=== PATIENT | male | born 1965 | race Caucasian/White ===

== ENCOUNTER 2017-10-27 17:27 | Emergency (ER) | payer MEDICAID, OTHER ==
[~2017-10-27] VITALS: Ht 182.9 cm; Wt 100.9 kg
--- NOTE | 2017-10-27 17:49 | NUR ---
BIB SON C/O DYSURIA SINCE YESTERDAY. AAOX3. VSS. PT SEEN & EVAL'D BY DR. CERVANTES. URINE COLLECTED & SENT TO LAB. PT STABLE, NAD NOTED @ THIS TIME.
[2017-10-27] MEDS ORDERED: KETOROLAC TROMETHAMINE INJ 30 MG/ML VIAL IV ONE (18:00)
[2017-10-27] MEDS ORDERED: IV NS 0.9% 1,000 ML BAG IV ONE (18:00)
[2017-10-27 18:01] LABS: BASOPHILS # (AUTO) 0.3 /CMM (0.0-0.2); BASOPHILS % (AUTO) 1.3 % (0.0-2.0); EOSINOPHILS % (AUTO) 0.1 % (0.0-6.0); HEMATOCRIT 47 % (39-51); LYMPHOCYTES # (AUTO) 1.4 /CMM (0.8-4.8); MEAN CORPUSCULAR HEMOGLOBIN 32 PG (26.0-33.0); MEAN CORPUSCULAR HGB CONC 34 g/dl (31.0-36.0); MEAN CORPUSCULAR VOLUME 94 fL (80-96); MONOCYTES % (AUTO) 8.6 % (2.0-12.0); PLATELET COUNT (AUTO) 152 /CMM (150-450); RDW COEFFICIENT OF VARIATION 12.8 (11.5-15.0); RED BLOOD CELL COUNT(AUTO) 5.01 MIL/uL (4.5-6.0); WHITE BLOOD COUNT (AUTO) 23.7 K/uL (4.3-11.0)
[2017-10-27 18:05] LABS: APPEARANCE,URINE Clear (CLEAR); BILIRUBIN,URINE Negative (NEGATIVE); BLOOD, URINE Moderate Ery/uL (NEGATIVE); COLOR,URINE Yellow (YELLOW); KETONES,URINE Negative (NEGATIVE); LEUKOCYTE ESTERASE ,URINE Small (NEGATIVE); NITRITE, URINE Negative (NEGATIVE); PH,URINE 5.5 (5.0-8.0); PROTEIN,URINE 30 mg/dl (NEGATIVE); UGLUCOSE Negative (NEGATIVE); UROBILINOGEN,URINE 0.2 EU/dL (0.2)
[2017-10-27] MEDS ORDERED: KETOROLAC TROMETHAMINE INJ 30 MG/ML VIAL ONE (18:07)
[2017-10-27 18:11] LABS: CALCIUM, SERUM 9.1 mg/dL (8.5-10.1); CREATININE 1.2 mg/dL (0.6-1.3); POTASSIUM 3.5 mmol/L (3.5-5.1)
[2017-10-27 18:19] LABS: BACTERIA,URINE Few /HPF (None Seen); SQUAMOUS EPITHELIAL CELL,UR Few /HPF (None Seen); URINE AMORPHOUS URATE Few /HPF (None Seen); WBC,URINE TOO NUMEROUS TO COUN /HPF (0-3)
[2017-10-27 18:20] LABS: MUCUS,URINE Few /LPF (None Seen)
[2017-10-27 18:23] LABS: ALBUMIN 3.6 g/dL (3.4-5.0); BILIRUBIN,DIRECT 0.1 mg/dL (0.0-0.2); BILIRUBIN,TOTAL 0.8 mg/dL (0.2-1.0); TOTAL PROTEIN, SERUM 7.7 g/dL (6.4-8.2)
[2017-10-27] MEDS ORDERED: PHENAZOPYRIDINE HCL 200 MG TABLET PO ONE (18:30)
[2017-10-27] MEDS ORDERED: CEFTRIAXONE 1 G in IV D5W 50 ML IV ONE (18:30)
[2017-10-27] MEDS ORDERED: CEFTRIAXONE 1 G VIAL ONE (18:48)
[2017-10-27] MEDS ORDERED: PHENAZOPYRIDINE HCL 200 MG TABLET ONE (18:48)
[2017-10-27 19:21] VITALS: BP 112/70
== END 2017-10-27 19:22 | disposition home or self-care (01) ==
LOC: ER 17:28
DX: N10 Acute pyelonephritis (principal); I10 Essential (primary) hypertension; F17.200 Nicotine dependence, unspecified, uncomplicated; Z88.6 Allergy status to analgesic agent
CPT/HCPCS: 36415; 80048; 80076; 81001; 83690; 85025; 87077; 87086; 87186; 96365; 96375; 99284; A4606; J0696; J1885; J7030; J7060; Z7610; 81000-TC

== ENCOUNTER 2017-11-02 11:21 | Emergency (ER) | payer OTHER ==
[~2017-11-02] VITALS: Ht 177.8 cm; Wt 98.0 kg
--- NOTE | 2017-11-02 11:45 | NUR ---
ON/OFF FEVER, FLANK PAIN SEEN HERE FOR PYELONEPHRITIS RX CIPRO 500. PT SEEN & EVAL'D BY DR. BOOTH.
--- NOTE | 2017-11-02 12:06 | NUR ---
Patient discharged to home in stable condition. Written and verbal after care instructions given. Patient verbalizes understanding of instruction.
[2017-11-02 12:07] VITALS: BP 118/80
== END 2017-11-02 12:08 | disposition home or self-care (01) ==
LOC: ER 11:22
DX: Z13.89 Encounter for screening for other disorder (principal); R50.9 Fever, unspecified; R10.9 Unspecified abdominal pain; I10 Essential (primary) hypertension; F17.200 Nicotine dependence, unspecified, uncomplicated; Z88.6 Allergy status to analgesic agent
CPT/HCPCS: 99281; A4606; Z7610; Z7502

== ENCOUNTER 2022-07-06 08:34 | Emergency (ER) | payer OTHER ==
[~2022-07-06] VITALS: Ht 180.3 cm; Wt 99.8 kg
--- NOTE | 2022-07-06 09:01 | NUR ---
pt came in due to headache, generalized. pain is 7/10. he claims worried about brain problems bec it come and goes.
--- NOTE | 2022-07-06 09:02 | NUR ---
iv inserted rt ac 20g
--- NOTE | 2022-07-06 09:08 | NUR ---
TAKEN TO CT VIA [facility]
--- NOTE | 2022-07-06 09:14 | NUR ---
[facility]
--- NOTE | 2022-07-06 09:19 | NUR ---
CAME IN FROM CT SCAN VIA [facility]
--- NOTE | 2022-07-06 10:16 | NUR ---
IV removed. Catheter intact and site benign. Pressure and 4x4 applied to site. No bleeding noted.Patient discharged to home in stable condition. Written and verbal after care instructions given. Patient verbalizes understanding of instruction.
[2022-07-06 10:18] VITALS: BP 140/72
== END 2022-07-06 10:18 | disposition home or self-care (01) ==
LOC: ER 08:45
DX: R51.9 Headache, unspecified (principal); I10 Essential (primary) hypertension; F17.200 Nicotine dependence, unspecified, uncomplicated; Z88.1 Allergy status to other antibiotic agents
CPT/HCPCS: 36415; 70450-TC; 85652-TC

== ENCOUNTER 2022-07-10 09:19 | Emergency (ER) | payer OTHER ==
[~2022-07-10] VITALS: Ht 175.3 cm; Wt 101.2 kg
--- NOTE | 2022-07-10 09:29 | NUR ---
URINE COLLECTED AND SENT TO THE LAB
--- NOTE | 2022-07-10 09:35 | NUR ---
RECEIVED PT 57 YRS MALE CAME FROM HOME C/O PAINFULL URINATION DR. FATOUMATA GUPTA PT
--- NOTE | 2022-07-10 09:45 | NUR ---
TO CT SCAN OF ABDOMINE
--- NOTE | 2022-07-10 09:55 | NUR ---
INSERTED ANGO CATHETER G 18 ON RT AC BLOOD DROW AND SENT TO LAB BLOOD CULURE X 2 SENT TO LAB
[2022-07-10] MEDS ORDERED: MORPHINE SULFATE INJ 4 MG/ML DISP.SYRIN ONE ×2 (09:59→11:44)
[2022-07-10] MEDS ORDERED: IV NS 0.9% 1,000 ML BAG IV ONE (10:00)
[2022-07-10] MEDS ORDERED: MORPHINE SULFATE INJ 2 MG/ML DISP.SYRIN IV ONE ×2 (10:00→12:00)
[2022-07-10 10:20] LABS: BACTERIA,URINE Rare /HPF (None Seen); BILIRUBIN,URINE 2+ (NEGATIVE); COLOR,URINE DARK YELLOW (YELLOW); LEUKOCYTE ESTERASE ,URINE NEGATIVE (NEGATIVE); NITRITE, URINE NEGATIVE (NEGATIVE); PH,URINE 5.5 (5.0-8.0); PROTEIN,URINE 2+ mg/dl (NEGATIVE); SQUAMOUS EPITHELIAL CELL,UR Few /HPF (None Seen); UGLUCOSE NEGATIVE (NEGATIVE)
[2022-07-10 10:38] LABS: ALBUMIN 3.6 g/dL (3.4-5.0); BILIRUBIN,DIRECT 0.2 mg/dL (0.0-0.2); CALCIUM, SERUM 9.1 mg/dL (8.5-10.1); CREATININE 1.1 mg/dL (0.6-1.3); POTASSIUM 3.6 mmol/L (3.5-5.1); TOTAL PROTEIN, SERUM 8.5 g/dL (6.4-8.2)
--- NOTE | 2022-07-10 10:40 | NUR ---
RESTING AND COMORTABL AT THIS TIME NO N/V
[2022-07-10 11:24] LABS: BASOPHILS % (AUTO) 0.3 % (0.0-2.0); EOSINOPHILS % (AUTO) 0.1 % (0.0-6.0); HEMATOCRIT 47 % (39-51); HEMOGLOBIN 15.8 g/dL (13.5-17.5); LYMPHOCYTES # (AUTO) 2.5 K/uL (0.8-4.8); LYMPHOCYTES % (AUTO) 16.7 % (20.0-44.0); MEAN CORPUSCULAR HGB CONC 34 g/dl (31.0-36.0); MEAN CORPUSCULAR VOLUME 93 fL (80-96); MONOCYTES # (AUTO) 1.5 K/uL (0.1-1.30); MONOCYTES % (AUTO) 9.8 % (2.0-12.0); NEUTROPHILS # (AUTO) 11.1 K/uL (1.8-8.9); NEUTROPHILS % (AUTO) 73.1 % (43.0-81.0); PLATELET COUNT (AUTO) 170 K/uL (150-450); RED BLOOD CELL COUNT(AUTO) 5.01 MIL/uL (4.5-6.0); WHITE BLOOD COUNT (AUTO) 15.1 K/uL (4.3-11.0)
[2022-07-10] MEDS ORDERED: CEFTRIAXONE 1GM BAG (ER ONLY) 50 ML IV ONE (11:43)
--- NOTE | 2022-07-10 11:45 | NUR ---
c/o abdminale pain back morphin 4 mg slow ivp given
[2022-07-10] MEDS ORDERED: CEFTRIAXONE 1GM BAG (ER ONLY) 1 GM/50 ML PIGGYBACK IV ONE (12:00)
[2022-07-10] MEDS ORDERED: LEVO500T90 PO (12:17)
[2022-07-10] MEDS ORDERED: HYDR-3980 PO (12:17)
--- NOTE | 2022-07-10 12:35 | NUR ---
IV removed. Catheter intact and site benign. Pressure and 4x4 applied to site. No bleeding noted.
--- NOTE | 2022-07-10 12:40 | NUR ---
Patient discharged to home in stable condition. Written and verbal after care instructions given. Patient verbalizes understanding of instruction.
[2022-07-10 12:47] VITALS: BP 140/82
== END 2022-07-10 13:10 | disposition home or self-care (01) ==
LOC: ER 09:19
DX: N41.9 Inflammatory disease of prostate, unspecified (principal); I10 Essential (primary) hypertension; F17.200 Nicotine dependence, unspecified, uncomplicated; Z88.8 Allergy status to other drugs, medicaments and biological substances
CPT/HCPCS: 99285; 74176; 96365; 96361; 96375; 96376; 85025; 80048; 87040 ×2; 87086; 83605; 83690; 80076; 81001; 36415; J2270 ×2; J7030; J7040; J0696

== ENCOUNTER 2022-07-10 17:56 | Emergency (ER) | payer OTHER ==
[~2022-07-10] VITALS: Ht 175.3 cm; Wt 101.2 kg
[~2022-07-10 17:56] MED LIST: HYDR-3980 PO; LEVO500T90 PO
--- NOTE | 2022-07-10 18:00 | NUR ---
RECEVED PT 57 YRS MALE CAME FORM HOME FOR UNBLE TO URINATE SINCE 9 AM PT SEEN THIS MORNING BLADER SCAN DONE BY MD IBANEZ BLADDER distended
[2022-07-10] MEDS ORDERED: LIDOCAINE 2% JEL UROJET 10 ML MM ONE (18:28)
--- NOTE | 2022-07-10 18:30 | NUR ---
INSERTED FC FR 16 NO DIFECULTY OUT PUT 750 ML CLEAR YELLOW COLOR
--- NOTE | 2022-07-10 18:45 | NUR ---
PT FEELING IMPROVING NO BLDDER DISTETION
--- NOTE | 2022-07-10 19:00 | NUR ---
PT BIB DUE TO INABILITY TO URINATE. PATIENT WAS DISCHARGED FROM ER THIS MORNING FOR PROSTATITIS. PT AAO X 4, BREATHING UNLABORED. PT ATTACHED TO MONITOR AND PULSE OX. AWAITING MD ARELLANO
--- NOTE | 2022-07-10 19:05 | NUR ---
HAND OFF LUIS ALFREDO RN TOTALE URINE OUT PUT 900 ML
--- NOTE | 2022-07-10 19:34 | NUR ---
Patient discharged to home in stable condition. Written and verbal after care instructions given. Patient verbalizes understanding of instruction. Patient ambulatory with a steady gait.
[2022-07-10 19:35] VITALS: BP 180/96
== END 2022-07-10 19:35 | disposition home or self-care (01) ==
LOC: ER 17:58
DX: N41.9 Inflammatory disease of prostate, unspecified (principal); R33.9 Retention of urine, unspecified; I10 Essential (primary) hypertension; F17.200 Nicotine dependence, unspecified, uncomplicated; Z79.899 Other long term (current) drug therapy; Z88.1 Allergy status to other antibiotic agents
CPT/HCPCS: 99284; 51702; J3490

== ENCOUNTER 2023-03-11 11:44 | Emergency (ER) | payer OTHER ==
[~2023-03-11] VITALS: Ht 175.3 cm; Wt 80.7 kg
[2023-03-11 14:56] VITALS: BP 154/89; TEMP 97.7; O2SAT 99
[2023-03-12] MEDS ORDERED: ONDANSETRON HCL/PF 4 MG/2 ML VIAL ONE (03:03)
[2023-03-12] MEDS ORDERED: MORPHINE SULFATE INJ 4 MG/ML DISP.SYRIN ONE (03:03)
== END 2023-03-11 14:58 | disposition left against medical advice (07) ==
LOC: ER 11:51
DX: M54.50 Low back pain, unspecified (principal); Z53.21 Procedure and treatment not carried out due to patient leaving prior to being seen by health care provider
CPT/HCPCS: J2270; J2405